=== PATIENT | male | born 1945 | race Hispanic/Latino ===

== ENCOUNTER → 2024-01-16 | Outpatient (REF) | payer MEDICARE | LOC: CT 12:30 | PROVIDERS: ATTEND Nurse Practitioner Family | DX: I69.354 Hemiplegia and hemiparesis following cerebral infarction affecting left non-dominant side (principal); F32.A Depression, unspecified | CPT/HCPCS: 70450 ==

== ENCOUNTER → 2024-09-03 | Outpatient (REF) | payer MEDICARE ==
[~2024-09-03] MED LIST: IOPAMIDOL 370 MG/ML 100 ML INFUS..BTL INJ ONE; SODIUM CHLORIDE 0.9% 250ML 250 ML ONE
[2024-09-03 14:18] LABS: EST GLOMERULAR FILTRATION RATE 53.0 ML/MIN (>=60)
== END ==
LOC: CT 13:07
PROVIDERS: ATTEND Urology
DX: R31.21 Asymptomatic microscopic hematuria (principal)
CPT/HCPCS: 36415; 74178; 82565; 84520; J7050; Q9967